=== PATIENT | male | born 1995 | race Caucasian/White ===

== ENCOUNTER 2019-08-05 18:05 | Emergency (ER) | payer OTHER ==
[2019-08-05 18:13] VITALS: BP 139/94; PULSE 99; TEMP 98.7; BMI 25.1
[2019-08-05] MEDS ORDERED: ACETAMINOPHEN 500 MG TABLET (FP) PO ONE (19:08)
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
[2019-08-05] MEDS ORDERED: ACETAMINOPHEN 500 MG TABLET (FP) ONE (20:16)
== END 2019-08-05 20:28 | disposition home or self-care (01) ==
LOC: JERFT 18:05
DX: Z77.21 Contact with and (suspected) exposure to potentially hazardous body fluids (principal); M25.531 Pain in right wrist; Y35.811A Legal intervention involving manhandling, law enforcement official injured, initial encounter; Y93.89 Activity, other specified; Y92.89 Other specified places as the place of occurrence of the external cause; Y99.0 Civilian activity done for income or pay
CPT/HCPCS: 73110-TC-RT-FY; 73130-TC-RT-FY; 99281-25

== ENCOUNTER 2019-09-06 23:00 | Emergency (ER) | payer OTHER ==
[2019-09-06 23:05] VITALS: BP 109/53; PULSE 81; TEMP 97.9; BMI 25.8
[2019-09-06] MEDS ORDERED: DIPHTH,PERTUSS(ACELL),TET 0.5 ML DISP.SYRIN IM ONE ×2 (23:09→23:18)
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
[2019-09-06] MEDS ORDERED: IBUPROFEN 400 MG TABLET (FP) PO ONE (23:13)
== END 2019-09-06 23:40 | disposition home or self-care (01) ==
LOC: JER 23:00
PROC: 3E0234Z Introduction of Serum, Toxoid and Vaccine into Muscle, Percutaneous Approach (ICD-10-PCS; principal; 2019-09-06)
DX: S80.212A Abrasion, left knee, initial encounter (principal); Y35.811A Legal intervention involving manhandling, law enforcement official injured, initial encounter; Y93.89 Activity, other specified; Y92.89 Other specified places as the place of occurrence of the external cause; Y99.0 Civilian activity done for income or pay
CPT/HCPCS: 90715; 99283-25

== ENCOUNTER 2019-10-14 16:13 | Emergency (ER) | payer OTHER ==
[2019-10-14 16:32] VITALS: BP 126/67; PULSE 71; TEMP 98.4; BMI 26.4
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
== END 2019-10-14 16:55 | disposition home or self-care (01) ==
LOC: JERFT 16:13 → JER 16:13 → JERFT 16:55
DX: Z77.21 Contact with and (suspected) exposure to potentially hazardous body fluids (principal); Y35.891A Legal intervention involving other specified means, law enforcement official injured, initial encounter; Y93.89 Activity, other specified; Y92.89 Other specified places as the place of occurrence of the external cause; Y99.0 Civilian activity done for income or pay
CPT/HCPCS: 99281-25

== ENCOUNTER 2020-06-19 23:05 | Emergency (ER) | payer OTHER ==
[2020-06-19 23:11] VITALS: BMI 25.8
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
[2020-06-19 23:20] VITALS: BP 128/87; PULSE 110; TEMP 98.4
== END 2020-06-19 23:40 | disposition home or self-care (01) ==
LOC: FER 23:05
DX: S60.811A Abrasion of right wrist, initial encounter (principal)
CPT/HCPCS: 99283-25

== ENCOUNTER 2020-07-26 22:44 | Emergency (ER) | payer OTHER ==
[2020-07-26 22:51] VITALS: BP 133/82; PULSE 98; TEMP 99.2; BMI 25.8
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
== END 2020-07-26 23:25 | disposition home or self-care (01) ==
LOC: FER 22:44
DX: S99.911A Unspecified injury of right ankle, initial encounter (principal)
CPT/HCPCS: 73610-TC-RT-FY; 73630-TC-RT-FY; 99283-25

== ENCOUNTER 2021-01-25 17:36 | Emergency (ER) | payer OTHER ==
[2021-01-25 17:56] VITALS: BP 144/93; PULSE 90; TEMP 98.2; BMI 25.8
[2021-01-25] MEDS ORDERED: CEPHALEXIN MONOHYDRATE 500 MG CAPSULE (UD) PO ONE (18:20)
[2021-01-25] MEDS ORDERED: CEPHALEXIN MONOHYDRATE 500 MG CAPSULE (UD) ONE (18:30)
== END 2021-01-25 18:54 | disposition home or self-care (01) ==
LOC: FER 17:36
DX: S60.511A Abrasion of right hand, initial encounter (principal)
CPT/HCPCS: 99283-25

== ENCOUNTER 2021-01-30 22:29 | Emergency (ER) | payer OTHER ==
[2021-01-30 22:41] VITALS: BMI 25.8
[2021-01-30 22:44] VITALS: BP 126/78; PULSE 90
[2021-01-30] MEDS ORDERED: IBUPROFEN 600 MG TABLET (FP) PO ONE ×2 (23:36→23:38)
== END 2021-01-30 23:47 | disposition home or self-care (01) ==
LOC: FER 22:29
DX: S43.401A Unspecified sprain of right shoulder joint, initial encounter (principal); S63.641A Sprain of metacarpophalangeal joint of right thumb, initial encounter; Y04.8XXA Assault by other bodily force, initial encounter
CPT/HCPCS: 73030-TC-RT-FY; 73140-TC-RT-FY; 99284-25

== ENCOUNTER 2022-03-24 19:48 | Emergency (ER) | payer OTHER ==
[2022-03-24 20:00] VITALS: BP 131/76; PULSE 101; TEMP 98.4; BMI 25.8
== END 2022-03-24 21:01 | disposition home or self-care (01) ==
LOC: FER 19:48
DX: S63.311A Traumatic rupture of collateral ligament of right wrist, initial encounter (principal); S60.00XA Contusion of unspecified finger without damage to nail, initial encounter; W01.0XXA Fall on same level from slipping, tripping and stumbling without subsequent striking against object, initial encounter
CPT/HCPCS: 73140-TC-RT-FY; 99283-25

== ENCOUNTER 2023-05-05 17:06 | Emergency (ER) | payer OTHER ==
[2023-05-05 17:19] VITALS: BP 144/90; PULSE 104; RESP 16; TEMP 99.1; BMI 25.8
[2023-05-05] MEDS ORDERED: ACETAMINOPHEN 325 MG TABLET (FP) PO ONE (18:29)
[2023-05-05] MEDS ORDERED: ACETAMINOPHEN 325 MG TABLET (FP) ONE (18:38)
== END 2023-05-05 18:43 | disposition home or self-care (01) ==
LOC: FER 17:06
DX: S80.211A Abrasion, right knee, initial encounter (principal); M25.561 Pain in right knee; W19.XXXA Unspecified fall, initial encounter; Y93.02 Activity, running; Y92.009 Unspecified place in unspecified non-institutional (private) residence as the place of occurrence of the external cause
CPT/HCPCS: 99283-25

== ENCOUNTER 2023-06-14 19:00 | Emergency (ER) | payer OTHER ==
[2023-06-14 19:49] VITALS: BP 138/79; PULSE 88; RESP 18; TEMP 98.5; BMI 25.8
[2023-06-14] MEDS ORDERED: KETOROLAC TROMETHAMINE 30 MG/1 ML VIAL IM ONE (19:55)
[2023-06-14] MEDS ORDERED: LIDOCAINE 5% TOPICAL PATCH TP ONE (19:55)
[2023-06-14] MEDS ORDERED: ACETAMINOPHEN 500 MG TABLET (FP) PO ONE (19:55)
[2023-06-14] MEDS ORDERED: ACETAMINOPHEN 325 MG TABLET (FP) ONE (20:00)
[2023-06-14] MEDS ORDERED: LIDOCAINE 5% TOPICAL PATCH ONE (20:00)
[2023-06-14] MEDS ORDERED: KETOROLAC TROMETHAMINE 30 MG/1 ML VIAL ONE (20:01)
[2023-06-14] MEDS ORDERED: LIDOCAINE PATCH REMOVAL MC SCH (22:00)
== END 2023-06-14 20:50 | disposition home or self-care (01) ==
LOC: JERFT 19:00 → JER 19:00 → JERFT 20:50
PROC: 3E0233Z Introduction of Anti-inflammatory into Muscle, Percutaneous Approach (ICD-10-PCS; principal; 2023-06-14)
DX: M54.50 Low back pain, unspecified (principal); V43.62XA Car passenger injured in collision with other type car in traffic accident, initial encounter; Y35.811A Legal intervention involving manhandling, law enforcement official injured, initial encounter
CPT/HCPCS: 72100-TC-FY; 99284-25

== ENCOUNTER 2024-07-04 19:29 | Emergency (ER) | payer OTHER ==
[2024-07-04 19:38] VITALS: BP 151/84; PULSE 96; RESP 18; TEMP 99; BMI 27.5
== END 2024-07-04 20:50 | disposition home or self-care (01) ==
LOC: FER 19:29
DX: S60.811A Abrasion of right wrist, initial encounter (principal); S50.312A Abrasion of left elbow, initial encounter; S80.212A Abrasion, left knee, initial encounter; Y35.811A Legal intervention involving manhandling, law enforcement official injured, initial encounter
CPT/HCPCS: 99282-25